=== PATIENT | female | born 1995 | race Asian ===

== ENCOUNTER 2017-05-01 03:45 | Emergency (ER) | payer OTHER ==
--- NOTE | 2017-05-01 04:11 | ED ---
Humberto Felton Rebecca, scribed for Kory Hemphill MD on 05/01/17 at 0402 . Substance Abuse/Use - HPI Summary HPI Summary: Pt is a 21 y/o F BIBA who comes to ED p/w EtOH intoxication. When asked, pt can recall drinking jungle juice tonight. Denies any drug use besides alcohol tonight. Level 5 caveat due to EtOH intoxication. - History Of Current Complaint Chief Complaint: EDGeneral Stated Complaint: ALCOHOL CONSUMPTION Time Seen by Provider: 05/01/17 03:48 Hx Obtained From: EMS Hx From Patient Unobtainable Due To: Other - EtOH intoxication Ingestion History: Type/Name Of Drug - EtOH - "jungle juice" Overdose Characteristics: Oral PMH/Surg Hx/FS Hx/Imm Hx Previously Healthy: No - Level 5 caveat due to EtOH intoxication. Infectious Disease History: Denies: Traveled Outside the [place] in Last 30 Days - Family History Known Family History: Positive: Unknown - Level 5 caveat due to EtOH intoxication - Social History Occupation: Student Alcohol Use: P/w EtOH intoxication Review of Systems Positive: Other - EtOH intoxication All Other Systems Reviewed And Are Negative: No Physical Exam Triage Information Reviewed: Yes Vital Signs On Initial Exam: Initial Vitals Temp Pulse Resp BP Pulse Ox 96.9 F 83 18 99/49 97 05/01/17 03:45 05/01/17 03:45 05/01/17 03:45 05/01/17 03:45 05/01/17 03:45 Vital Signs Reviewed: Yes Appearance: Positive: Well-Appearing, No Pain Distress - aob Skin: Positive: Warm Head/Face: Positive: Normal Head/Face Inspection Eyes: Positive: KAROL ENT: Positive: Hearing grossly normal Neck: Positive: Supple Respiratory/Lung Sounds: Positive: Clear to Auscultation, Breath Sounds Present Cardiovascular: Positive: RRR Abdomen Description: Positive: Nontender, Soft Bowel Sounds: Positive: Present Musculoskeletal: Positive: Strength/ROM Intact Neurological: Positive: Sensory/Motor Intact, Alert, Oriented to Person Place, Time Diagnostics - Vital Signs Vital Signs Temp Pulse Resp BP Pulse Ox 05/01/17 03:45 96.9 F 83 18 99/49 97 - Laboratory Lab Statement: Any lab studies that have been ordered have been reviewed, and results considered in the medical decision making process. Re-Evaluation - Re-Evaluation First Eval Change: Improved Course/Dx - Course Assessment/Plan: Pt is a 21 y/o F BIBA who comes to ED p/w EtOH intoxication. When asked, pt can recall drinking jungle juice tonight. Denies any drug use besides alcohol tonight. Level 5 caveat due to EtOH intoxication. Serum alcohol of 138. Pt will be D/C to home with Dx of alcohol intoxication and a follow up with her PCP. She agrees and understands. - Diagnoses Provider Diagnoses: Alcohol intoxication Discharge - Discharge Plan Condition: Stable Disposition: HOME Patient Education Materials: Alcohol Intoxication (ED) Referrals: Non Staff,Doctor [Primary Care Provider] - 3 Days Additional Instructions: Return to the ED for any returning or worsening symptoms. The documentation as recorded by the Humberto smith Rebecca accurately reflects the service I personally performed and the decisions made by me, Kory Hemphill MD.
[2017-05-01 05:12] LABS: Alcohol 138 mg/dL (<10)
[2017-05-01 07:05] VITALS: BP 98/64
== END 2017-05-01 07:15 | disposition home or self-care (01) ==
LOC: ED 03:45
DX: F10.129 Alcohol abuse with intoxication, unspecified (principal)
CPT/HCPCS: 36415; 80320; 84702; 99284; G0480